=== PATIENT | male | born 1985 | race Caucasian/White ===

== ENCOUNTER 2025-03-05 15:41 | Inpatient (IN) ==
[2025-03-05] MEDS ORDERED: Ativan PO Alcohol Withdrawal--Active Protocol PO PRN (17:27)
[2025-03-05] MEDS ORDERED: LORazepam 1 MG TAB PO PRN ×3 (17:27)
[2025-03-05 17:28] LABS: Appearance Urine Clear (Clear); Glucose Urine UA Negative (Negative)
[2025-03-05 17:32] LABS: Hematocrit (blood only) 43.0 % (42.0-52.0); Hemoglobin 15.6 g/dl (14.0-18.0); Immature Granulocytes # (auto) 0.02 K/uL (0.01-0.20); Immature Granulocytes % (auto) 0.3 %; Mean Corpuscular Hemoglobin 32.9 pg (25.0-34.0); Mean Corpuscular Volume 90.7 fL (80.0-100.0); Platelet Count 185 K/uL (130-400); RDW Standard Deviation 40.3 fL (36.4-46.3); Red Blood Count 4.74 M/uL (4.70-6.10); White Blood Count 6.10 K/ul (4.8-10.8)
[2025-03-05 17:49] LABS: Alanine Aminotransferase 77.0 U/L (7-52); Albumin Globulin Ratio 1.3 (0.9-2); Alkaline Phosphatase 61.0 U/L (34-104); Anion Gap 13.0 (3-11); Bilirubin,Total 1.1 mg/dl (0.2-1.0); Blood Urea Nitrogen 5.0 mg/dl (6-23); Calcium 8.2 mg/dl (8.6-10.3); Carbon Dioxide 23.0 mmol/L (21-32); Chloride 107.0 mmol/L (98-107); Creatinine Clr Calc Pharmacy 183.4 ml/min; Globulin 3.0 gm/dl (2.5-4.0); Glucose 105.0 mg/dl (70-99(Fasting)); Lipase 49.0 U/L (11-82); Potassium 3.2 mmol/L (3.5-5.1); Sodium 143.0 mmol/L (136-145); Total Protein 6.8 gm/dl (6.0-8.3)
[2025-03-05 17:50] LABS: Amphetamines+Metham, Urine Neg (Neg); MDMA (Ecstacy), Urine Neg (Neg); Marijuana, Urine Neg (Neg)
[2025-03-05] MEDS: SODIUM CHLORIDE 0.9% 1,000 ML IV ONE (17:57)
[2025-03-05] MEDS: THIAMINE HCL 100 MG/ML 2 ML VIAL IM ONE (17:59)
[2025-03-05 18:04] LABS: Thyroid Stimulating Hormone 1.657 uIu/ml (0.300-4.500)
[2025-03-05 18:09] LABS: Acetaminophen < 3 ug/ml (10-30); Salicylate < 3.0 mg/dl (3.0-30)
[2025-03-05] MEDS: MULTIVITAMIN TAB PO SCH (18:30)
[2025-03-05] MEDS: FOLIC ACID 1 MG TAB PO SCH (18:30)
[2025-03-05] MEDS: LORazepam 1 MG TAB PO PRN (18:32)
--- NOTE | 2025-03-05 19:08 | History & Physical Report ---
Date of Service March 05, 2025 Assessment & Plan (1) Alcohol abuse with withdrawal: (2) Acute anxiety: (3) Major depression: Plan Leonard Breen is a 39 y/o M with a past medical history of severe depressive disorder and anxiety, who recently attempted to taper off his chronic alcohol consumption in the past 2 weeks, and recently switched anti-depressant medication from Wellbutrin to Zoloft in the past 3 weeks, admitted due to worsening anxiety and depression with concerns for thoughts of HI and acute alcohol withdrawal. Patient denies current HI/SI. Alcohol abuse with withdrawal - 10mg PO diazepam and 4mg of PO Ativan given in ED with improvements in symptoms - AWSS protocol with Ativan started - Patient slightly tremulous and tachycardic, w/o N/V, abdominal pain, diaphoresis, agitation, or hallucinations; continue to monitor - LFTs slightly elevated, Ethyl alcohol elevated on admission: 298 - Folic acid and thiamine supplementation - CBC, CMP QAM Anxiety and depression - Continue home medications: Buspar 5mg TID (Consider increasing), and Zoloft 100mg PO QAM - Hold hydroxyzine as patient reports it has been ineffective - Psychiatry consult placed due to concerns with HI and for psychiatric medicati on management FEN/GI: Regular diet DVT proph: Lovenox 40mg SQ QAM History of Present Illness Chief Complaint: Acute EtOH withdrawal, severe depression/anxiety Primary Care Provider: Manfred Mistry MD Leonard Breen is a 39 y/o M with a past medical hx of major depressive disorder and severe anxiety arriving to [facility] ED with his brother for a mental health evaluation and due to acute alcohol intoxication and concerns for withdrawal. Patient reports that he does not have other significant past medical hx. Patient notes that for the past few years his mental health medications have been changing. Patient was initially on Lexapro, switched to Wellbutrin 150mg for approximately a year and then more recently switched to Zoloft 100mg in the past 3 weeks. Patient has also been on Buspar 5mg TID and hydroxyzine 10mg QID PRN, but reports that this medication does not help with his anxiety, but it does make him very tired. Patient also endorses that he has been heavily drinking, approximately "2 handles of vodka" per week for the past 3-4 months as he felt that his mental health medications were not working properly. Patient reports that 2 weeks ago patient attempted to taper off his regular alcohol consumption and feels that for approximately 3 weeks to a month he has had progressively worsening anxiety and depression. Patient denies HI/SI and has no plans related to HI/SI but does report that he resonates with other people with severe depression and anxiety who do end up hurting themselves. Patient does endorse that he has a medical marijuana card but does not like the way he feels after using this medication, and he feels that when he uses hydroxyzine or medical marijuana he cannot focus on his work. Patient does not report any new stressors, but he does mention that he started a job 5 months ago and mentions t hat the thought of failing at his job often spirals in his mind making it very difficult for him to complete any tasks or be productive. Currently patient remains afebrile and hemodynamically stable. Allergies Allergy/AdvReac Type Severity Reaction Status Date / Time No Known Drug Allergies Allergy Unknown Verified 03/05/25 18:20 Home Medications Medication Instructions Recorded Confirmed Type buspirone 5 mg tablet 5 mg PO TID 03/05/25 03/05/25 History hydroxyzine HCl 10 mg tablet 10 mg PO 4XD PRN Anxiety 03/05/25 03/05/25 History levocetirizine 5 mg PO DAILY PRN Allergy Symptoms 03/05/25 03/05/25 History sertraline 25 mg tablet (Zoloft) 100 mg PO HS 03/05/25 03/05/25 History Past Med/Surg History Problem List Major depression Alcohol abuse with withdrawal (Acute) Acute anxiety (Acute) control counseling Surgical History H/O nasal septoplasty [place] teeth extracted Family History Father Hypertension Diabetes Asthma Grandfather Heart disease Social History Smoking Status: Never smoker Hx Alcohol Use: Yes Hx Substance Use: No Preferred Language: Swiss Communication Ability: Effective 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 Skin: warm, dry, intact HEENT: NC/AT, anicteric sclera, conjunctiva without injection, moist mucus membranes. Heart: +S1/S2, regular, no m/r/g Lungs: equal air entry bilaterally, no rales/rhonchi/wheezes Abd: +BS, soft, NT/ND Ext: warm, no clubbing/cyanosis or edema Neuro: nonfocal, speech intact, no facial droop, moving all extremities Results & Data Results & Data Vital Signs (Past 12 Hours) Vital Signs Temp Pulse Pulse Resp BP BP Pulse Ox 03/05/25 18:21 94 03/05/25 17:18 92 H 20 143/99 H 99 03/05/25 16:11 36.8 C 94 H 24 166/81 H 98 O2 Del Method 03/05/25 18:21 Room Air 03/05/25 17:18 Room Air 03/05/25 16:11 Room Air Laboratory Results Laboratory Results WBC 6.10 K/ul (4.8-10.8) 03/05/25 16:55 RBC 4.74 M/uL (4.70-6.10) 03/05/25 16:55 Hgb 15.6 g/dl (14.0-18.0) 03/05/25 16:55 Hct 43.0 % (42.0-52.0) 03/05/25 16:55 MCV 90.7 fL (80.0-100.0) 03/05/25 16:55 MCH 32.9 pg (25.0-34.0) 03/05/25 16:55 MCHC 36.3 g/dL (32.0-36.0) H 03/05/25 16:55 RDW Std Deviation 40.3 fL (36.4-46.3) 03/05/25 16:55 RDW Coeff of Adriano 12.2 % (11.5-14.5) 03/05/25 16:55 Plt Count 185 K/uL (130-400) 03/05/25 16:55 MPV 8.2 fL (9.4-12.4) L 03/05/25 16:55 Immature Gran % (Auto) 0.3 % 03/05/25 16:55 Neut % (Auto) 62.6 % 03/05/25 16:55 Lymph % (Auto) 25.2 % 03/05/25 16:55 [place] % (Auto) 9.5 % 03/05/25 16:55 Eos % (Auto) 1.1 % 03/05/25 16:55 Baso % (Auto) 1.3 % 03/05/25 16:55 Neut # (Auto) 3.81 K/uL (1.40-6.50) 03/05/25 16:55 Lymph # (Auto) 1.54 K/uL (1.20-3.40) 03/05/25 16:55 [place] # (Auto) 0.58 K/uL (0.11-0.59) 03/05/25 16:55 Eos # (Auto) 0.07 K/uL (0.00-0.50) 03/05/25 16:55 Baso # (Auto) 0.08 K/uL (0.00-0.20) 03/05/25 16:55 Immature Gran # (Auto) 0.02 K/uL (0.01-0.20) 03/05/25 16:55 Sodium 143 mmol/L (136-145) 03/05/25 16:55 Potassium 3.2 mmol/L (3.5-5.1) L 03/05/25 16:55 Chloride 107 mmol/L (98-107) 03/05/25 16:55 Carbon Dioxide 23 mmol/L (21-32) 03/05/25 16:55 Anion Gap 13 (3-11) H 03/05/25 16:55 BUN 5 mg/dl (6-23) L 03/05/25 16:55 Creatinine 0.55 mg/dl (0.6-1.4) L 03/05/25 16:55 Est Cr Clr Drug Dosing 183.4 ml/min 03/05/25 16:55 eGFR 130.09 03/05/25 16:55 BUN/Creatinine Ratio 9.1 (10-20) L 03/05/25 16:55 Glucose 105 mg/dl (70-99(Fasting)) H 03/05/25 16:55 Calcium 8.2 mg/dl (8.6-10.3) L 03/05/25 16:55 Total Bilirubin 1.1 mg/dl (0.2-1.0) H 03/05/25 16:55 AST 105 U/L (13-39) H 03/05/25 16:55 ALT 77 U/L (7-52) H 03/05/25 16:55 Alkaline Phosphatase 61 U/L (34-104) 03/05/25 16:55 Total Protein 6.8 gm/dl (6.0-8.3) 03/05/25 16:55 Albumin 3.8 gm/dl (3.4-5.0) 03/05/25 16:55 Globulin 3.0 gm/dl (2.5-4.0) 03/05/25 16:55 Albumin/Globulin Ratio 1.3 (0.9-2) 03/05/25 16:55 Lipase 49 U/L (11-82) 03/05/25 16:55 TSH 1.657 uIu/ml (0.300-4.500) 03/05/25 16:55 Urine Color Yellow 03/05/25 16:24 Urine Appearance Clear (Clear) 03/05/25 16:24 Urine pH 7.5 (4.5-7.5) 03/05/25 16:24 Ur Specific [place] 1.003 (1.000-1.030) 03/05/25 16:24 Urine Protein Negative (Negative) 03/05/25 16:24 Urine Glucose (UA) Negative (Negative) 03/05/25 16:24 Urine Ketones Negative (Negative) 03/05/25 16:24 Urine Blood Negative (Negative) 03/05/25 16:24 Urine Nitrite Negative (Negative) 03/05/25 16:24 Urine Bilirubin Negative (Negative) 03/05/25 16:24 Urine Urobilinogen Negative (Negative) 03/05/25 16:24 Ur Leukocyte Esterase Trace (Negative) H 03/05/25 16:24 Urine Comment 03/05/25 16:24 Salicylates < 3.0 mg/dl (3.0-30) L 03/05/25 16:55 Urine Opiates Screen Neg (Neg) 03/05/25 16:24 Ur Methadone, Qual Neg (Neg) 03/05/25 16:24 Urine Fentanyl Screen Neg (Neg) 03/05/25 16:24 Acetaminophen < 3 ug/ml (10-30) L 03/05/25 16:55 Urine Barbiturates Neg (Neg) 03/05/25 16:24 Ur Phencyclidine (PCP) Neg (Neg) 03/05/25 16:24 U Amphetamin/Meth Scrn Neg (Neg) 03/05/25 16:24 MDMA (Ecstasy) Screen Neg (Neg) 03/05/25 16:24 U Benzodiazepines Scrn Neg (Neg) 03/05/25 16:24 Ur Cocaine Metabolite Neg (Neg) 03/05/25 16:24 U Marijuana (THC) Screen Neg (Neg) 03/05/25 16:24 Ethyl Alcohol mg/dL 289.7 mg/dl (<10.0) H 03/05/25 16:55 SARS-CoV-2, RNA, NAAT NEGATIVE (NEGATIVE) 03/05/25 16:55 Supervising Physician Co-Signing Physician Notes Patient seen and examined, chart reviewed, case discussed with Dr. Riggins and I agree with the assessment and plan as above. In brief, patient is a 39yo male with history of anxiety/depression presenting with worsening anxiety symptoms and EtOH withdrawal. Patient reports he drinks 2 handles of vodka/week (roughly 11-12 drinks/day) with his last drink being today around 15:00. Patient states that his anxiety is overall poorly controlled and he drinks to help manage ongoing anxiety. No history of complicated withdrawals, seizures, DTs or rehab. He did try to taper off his alcohol earlier this week but had some mild withdrawal symptoms. Recently had a change from Wellbutrin to Sertraline. On exam patient is resting comfortably in room A5 Skin - no rash HEENT - MMM, neck supple Heart - +S1/S2, regular, no m/r/g, tachycardic Lungs - CTA anteriorly, no rales/rhonchi/wheezes Abd - +BS, soft, NT/ND Ext -no edema Labs and images reviewed Assessment/plan -Admit to PCU -Administer Valium 10mg PO now -Ativan per AWSS protocol -Thiamine and Folic acid daily -Psychiatry consultation appreciated re: management of medications, ?escalation of Sertraline -Remainder as above Resident Activity Tracking Resident Involvement: Resident Care Provided Care Provided: Adult Hospital Medicine
--- NOTE | 2025-03-05 19:17 | Emergency Department Note ---
History of Present Illness General Chief complaint: Anxiety Stated complaint: PANIC Time Seen by Provider: 03/05/25 16:40 History of Present Illness Provider complaint: Mental health evaluation 31-year-old male presents emergency department for mental health evaluation. Patient states he has been having increasing panic attacks and anxiety leading him to be unable to work. Patient states his anxiety is so bad that he wants to kill himself. He states he has been having thoughts of wanting to kill himself. Patient states he has been trying to drink excessively to calm himself down. Patient states he drank half a bottle of vodka prior to arrival. Home Medications Medication Instructions Recorded Confirmed Type buspirone 5 mg tablet 5 mg PO TID 03/05/25 03/05/25 History hydroxyzine HCl 10 mg tablet 10 mg PO 4XD PRN Anxiety 03/05/25 03/05/25 History levocetirizine 5 mg PO DAILY PRN Allergy Symptoms 03/05/25 03/05/25 History sertraline 25 mg tablet (Zoloft) 100 mg PO HS 03/05/25 03/05/25 History Allergies Allergy/AdvReac Type Severity Reaction Status Date / Time No Known Drug Allergies Allergy Unknown Verified 03/05/25 18:20 Past Med/Surg History Problem List (Updated 03/05/25 @ 19:17 by Tang Escalante MD) Alcohol abuse with withdrawal (Acute) Acute anxiety (Acute) control counseling Surgical History (Updated 04/24/19 @ 08:59 by Manfred Grant) H/O nasal septoplasty [place] teeth extracted Family History (Updated 07/26/19 @ 16:53 by Manfred Grant) Father Hypertension Diabetes Asthma Grandfather Heart disease Social History (Updated 04/24/19 @ 09:01 by Manfred Grant) Smoking Status: Never smoker Hx Alcohol Use: Yes Preferred Language: Slovak marital status: Feels Safe at Home: Yes Physical Exam Vital Signs Vital Signs - 24 hr 03/05/25 16:11 03/05/25 17:18 03/05/25 18:21 Temperature 36.8 C Temperature Source Temporal Artery Scan Pulse Rate 94 H Pulse Rate [Apical] 92 H Respiratory Rate 24 20 Respiratory Effort / Characteristics Non-Labored Respiratory Depth Normal Normal Blood Pressure 166/81 H Blood Pressure [Right Arm] 143/99 H Blood Pressure Mean 109 Blood Pressure Mean [Right Arm] 113 Pulse Oximetry 98 99 94 Oxygen Delivery Method Room Air Room Air Room Air Sepsis Recent Fever Within 48 Hours No Sepsis New/Unexplained Change in Mental Status No Sepsis Action Taken by Nursing No Action Required Physical Exam GENERAL: Patient is tremulous and anxious HENT: Exam performed. - Head: Normocephalic and atraumatic. EYES: Conjunctivae and EOM are normal. Right eye exhibits no discharge. Left eye exhibits no discharge. No scleral icterus. NECK: Normal range of motion. Neck supple. No JVD present. CV: Tachycardic rate, regular rhythm, normal heart sounds and intact distal pulses. There is no peripheral edema. Palpable radial pulses bue. PULM/CHEST: Effort normal and breath sounds normal. No respiratory distress. No stridor. no wheezes. no rales. ABD: The abdomen is soft. There is no tenderness. NEURO: Motor and sensation grossly intact. PSYCH: Anxious. Course Course 1640: The patient was evaluated in room A5. A complete history and physical exam was performed Cardiac monitoring: An order was placed for continuous cardiac monitoring. The monitor shows a rate of 110 with sinus tachycardia rhythm interpreted by me 1916: Vital signs stable. Patient treated with Ativan for alcohol withdrawal symptoms given his tremulousness and tachycardia. Patient will be admitted for psychiatric evaluation and alcohol withdrawal. Administered Medications Folic Acid (Folic Acid 1 Mg Tab) 1 mg PO QAM JINNY Stop: 04/04/25 17:29 Last Admin: 03/05/25 18:30 Dose: 1 mg Documented By: KHAI Multivitamins (Multivitamin Tab) 1 tab PO QAM JINNY Stop: 04/04/25 17:29 Last Admin: 03/05/25 18:30 Dose: 1 tab Documented By: KHAI Discontinued Medications Sodium Chloride (Nss) 1,000 mls @ 999 mls/hr IV .Q1H1M ONE Stop: 03/05/25 18:27 Last Infusion: 03/05/25 19:07 Dose: Infused Documented By: Admin: 03/05/25 17:57 Dose: 999 mls/hr Documented By: KHAI Lorazepam (Lorazepam 2 Mg/1 Ml Vial) 1 mg IV ONE PRN; Protocol PRN Reason: EtoH Withdrawal AWSS 6-10 Last Admin: 03/05/25 17:58 Dose: 1 mg Documented By: KHAI Lorazepam (Lorazepam 1 Mg Tab) 3 mg PO ONCE PRN; Protocol PRN Reason: EtOH Withdrawal AWSS Score 10 & above Last Admin: 03/05/25 18:32 Dose: 3 mg Documented By: KHAI Thiamine HCl (Thiamine Hcl 100 Mg/Ml 2 Ml Vial) 100 mg IM NOW ONE Stop: 03/05/25 17:28 Last Admin: 03/05/25 17:59 Dose: 100 mg Documented By: KHAI Medical Decision Making Laboratory Data Attestation: I reviewed the patient's lab results. 03/05/25 16:55 03/05/25 16:55 Lab Results 03/05/25 03/05/25 Range/Units 16:24 16:55 WBC 6.10 (4.8-10.8) K/ul RBC 4.74 (4.70-6.10) M/uL Hgb 15.6 (14.0-18.0) g/dl Hct 43.0 (42.0-52.0) % MCV 90.7 (80.0-100.0) fL MCH 32.9 (25.0-34.0) pg MCHC 36.3 H (32.0-36.0) g/dL RDW Std Deviation 40.3 (36.4-46.3) fL RDW Coeff of Adriano 12.2 (11.5-14.5) % Plt Count 185 (130-400) K/uL MPV 8.2 L (9.4-12.4) fL Immature Gran % (Auto) 0.3 % Neut % (Auto) 62.6 % Lymph % (Auto) 25.2 % [place] % (Auto) 9.5 % Eos % (Auto) 1.1 % Baso % (Auto) 1.3 % Neut # (Auto) 3.81 (1.40-6.50) K/uL Lymph # (Auto) 1.54 (1.20-3.40) K/uL [place] # (Auto) 0.58 (0.11-0.59) K/uL Eos # (Auto) 0.07 (0.00-0.50) K/uL Baso # (Auto) 0.08 (0.00-0.20) K/uL Immature Gran # (Auto) 0.02 (0.01-0.20) K/uL Sodium 143 (136-145) mmol/L Potassium 3.2 L (3.5-5.1) mmol/L Chloride 107 (98-107) mmol/L Carbon Dioxide 23 (21-32) mmol/L Anion Gap 13 H (3-11) BUN 5 L (6-23) mg/dl Creatinine 0.55 L (0.6-1.4) mg/dl Est Cr Clr Drug Dosing 183.4 ml/min eGFR 130.09 BUN/Creatinine Ratio 9.1 L (10-20) Glucose 105 H (70-99(Fasting)) mg/dl Calcium 8.2 L (8.6-10.3) mg/dl Total Bilirubin 1.1 H (0.2-1.0) mg/dl AST 105 H (13-39) U/L ALT 77 H (7-52) U/L Alkaline Phosphatase 61 (34-104) U/L Total Protein 6.8 (6.0-8.3) gm/dl Albumin 3.8 (3.4-5.0) gm/dl Globulin 3.0 (2.5-4.0) gm/dl Albumin/Globulin Ratio 1.3 (0.9-2) Lipase 49 (11-82) U/L TSH 1.657 (0.300-4.500) uIu/ml Urine Color Yellow Urine Appearance Clear (Clear) Urine pH 7.5 (4.5-7.5) Ur Specific [place] 1.003 (1.000-1.030) Urine Protein Negative (Negative) Urine Glucose (UA) Negative (Negative) Urine Ketones Negative (Negative) Urine Blood Negative (Negative) Urine Nitrite Negative (Negative) Urine Bilirubin Negative (Negative) Urine Urobilinogen Negative (Negative) Ur Leukocyte Esterase Trace H (Negative) Urine Comment Salicylates < 3.0 L (3.0-30) mg/dl Urine Opiates Screen Neg (Neg) Ur Methadone, Qual Neg (Neg) Urine Fentanyl Screen Neg (Neg) Acetaminophen < 3 L (10-30) ug/ml Urine Barbiturates Neg (Neg) Ur Phencyclidine (PCP) Neg (Neg) U Amphetamin/Meth Scrn Neg (Neg) MDMA (Ecstasy) Screen Neg (Neg) U Benzodiazepines Scrn Neg (Neg) Ur Cocaine Metabolite Neg (Neg) U Marijuana (THC) Screen Neg (Neg) Ethyl Alcohol mg/dL 289.7 H (<10.0) mg/dl SARS-CoV-2, RNA, NAAT NEGATIVE (NEGATIVE) MDM Narrative 1640: The patient was evaluated in room A5. A complete history and physical exam was performed Cardiac monitoring: An order was placed for continuous cardiac monitoring. The monitor shows a rate of 110 with sinus tachycardia rhythm interpreted by me 1916: Vital signs stable. Patient treated with Ativan for alcohol withdrawal symptoms given his tremulousness and tachycardia. Patient will be admitted for psychiatric evaluation and alcohol withdrawal. Impression & Plan Acute anxiety, Alcohol abuse with withdrawal Discharge Plan Visit Data Chief Complaint: Anxiety Stated Complaint: PANIC ED Provider: Tang Escalante Discharge Problem: Acute anxiety, Alcohol abuse with withdrawal Patient Disposition: Being Evaluated by Hospitalist Condition: Fair Forms Stand Alone Forms: [facility], Suicide Prevention Resources Prescriptions Prescriptions: No Action buspirone [BuSpar] 5 mg Tablet 5 mg PO TID sertraline [Zoloft] 25 mg tablet 100 mg PO HS hydroxyzine HCl 10 mg tablet 10 mg PO 4XD PRN (Reason: Anxiety) levocetirizine 5 mg tablet 5 mg PO DAILY PRN (Reason: Allergy Symptoms) Referrals Referrals: Manfred Mistry MD [Primary Care Provider] -
[2025-03-05] MEDS ORDERED: POLYETHYLENE (MIRALAX) 17 GM PACK PO PRN (21:41)
[2025-03-05] MEDS ORDERED: Ativan IV Alcohol Withdrawal--Active Protocol IV PRN ×2 (21:41)
[2025-03-05] MEDS ORDERED: ACETAMINOPHEN 325 MG TAB PO PRN (21:41)
[2025-03-05] MEDS ORDERED: MELATONIN 3 MG TAB PO PRN (21:41)
[2025-03-05] MEDS: busPIRone 5 MG TAB PO SCH (22:06)
[2025-03-05] MEDS: SERTRALINE HCL 100 MG TABLET PO SCH (22:06)
[2025-03-05] MEDS: ENOXAPARIN INJ 40 MG/0.4 ML SYR SQ SCH (22:30)
--- NOTE | 2025-03-05 22:34 | Billing Data ---
Date of Service March 05, 2025 Coding Level of Care Code 70700 INT INP/OBS CARE
[2025-03-06] MEDS: POTASSIUM CHLORIDE CRTAB 20 MEQ TABCR PO STA (07:43)
[2025-03-06 07:53] LABS: Hematocrit (blood only) 40.8 % (42.0-52.0); Hemoglobin 15.0 g/dl (14.0-18.0); Immature Granulocytes # (auto) 0.02 K/uL (0.01-0.20); Immature Granulocytes % (auto) 0.3 %; Mean Corpuscular Hemoglobin 34.2 pg (25.0-34.0); Mean Corpuscular Volume 93.2 fL (80.0-100.0); Platelet Count 163 K/uL (130-400); RDW Standard Deviation 41.3 fL (36.4-46.3); Red Blood Count 4.38 M/uL (4.70-6.10); White Blood Count 7.11 K/ul (4.8-10.8)
[2025-03-06 08:17] LABS: Alanine Aminotransferase 69.0 U/L (7-52); Albumin Globulin Ratio 1.6 (0.9-2); Alkaline Phosphatase 58.0 U/L (34-104); Anion Gap 9.0 (3-11); Bilirubin,Total 1.8 mg/dl (0.2-1.0); Blood Urea Nitrogen 6.0 mg/dl (6-23); Calcium 7.9 mg/dl (8.6-10.3); Carbon Dioxide 26.0 mmol/L (21-32); Chloride 105.0 mmol/L (98-107); Creatinine Clr Calc Pharmacy 173.9 ml/min; Globulin 2.4 gm/dl (2.5-4.0); Glucose 97.0 mg/dl (70-99(Fasting)); Magnesium 1.4 mg/dl (1.7-2.4); Potassium 3.6 mmol/L (3.5-5.1); Sodium 140.0 mmol/L (136-145); Total Protein 6.2 gm/dl (6.0-8.3)
[2025-03-06 08:37] LABS: Folate (Folic Acid),Ser orPlas 9.03 ng/ml (>5.38); Vitamin B12 252.0 pg/ml (180-914)
[2025-03-06] MEDS: THIAMINE HCL 100 MG TAB PO SCH (09:33)
[2025-03-06] MEDS: CYANOCOBALAMIN 1000 MCG/ML VIAL IM ONE (10:28)
--- NOTE | 2025-03-06 11:35 | Hospitalist Progress Note ---
Date of Service March 06, 2025 Assessment & Plan (1) Alcohol abuse with withdrawal: (2) Acute anxiety: (3) Major depression: Plan Leonard Breen is a 39 y/o M with a PMH of severe depressive disorder and anxiety, insomnia. he was on buspirone, hydroxyzine, lexapro in the past, and did not address his anxiety. who recently attempted to taper off his chronic alcohol consumption in the past 2 weeks, and recently switched anti-depressant medication from Wellbutrin to Zoloft in the past 3 weeks, admitted due to worsening anxiety and depression with concerns for thoughts of HI and acute alcohol withdrawal. Patient denies current HI/SI. Alcohol abuse with withdrawal need admission to PCU need one to one sitter - 10mg PO diazepam and 4mg of PO Ativan given in ED with improvements in symptoms adding gabapentin on interview on 03/06, still has tremor, diaphoresis - AWSS protocol with Ativan started - Patient slightly tremulous and tachycardic, w/o N/V, abdominal pain, diaphoresis, agitation, or hallucinations; continue to monitor - LFTs slightly elevated, Ethyl alcohol elevated on admission: 298 - Folic acid and thiamine - CBC, CMP QAM transaminitis continue to monitor, AST elevated at 119, ALT of 69 total bilirubin elevated Anxiety and depression - Continue home medications: Buspar 5mg TID (Consider increasing), and Zoloft 100mg PO QAM adding gabapentin 100mg tID - Hold hydroxyzine as patient reports it has been ineffective - Psychiatry consult placed due to concerns with HI and for psychiatric medication management insomnia, melatonin 6mg qHS b12 deficiency; IM b12 1000 daily FEN/GI: Regular diet DVT proph: Lovenox 40mg SQ QAM Admission and Anticipated Discharge Date Admission Date: March 05, 2025 Subjective he's need one to one until psych cleared him he has significant diaphoresis, tremor and being treated for alcohol withdrawal he finished one bottle of liquid in 2-3 days in addition, long standing anxiety did not responded to hydroxyzine, buspirone, lexapro recently started on zoloft but has poor response AAox3 denied stressor at work or at home Review of Systems Review of Systems: Constitutional: No Weight Change, No Fever, No Chills, No Night Sweats, No Fatigue, No Malaise Cardiovascular: No Chest Pain, No SOB, No PND, No Dyspnea on Exertion, No Orthopnea, No Claudication, No Edema, No Palpitations Respiratory: No Cough, No Sputum, No Wheezing, No Smoke Exposure, No Dyspnea Gastrointestinal: No Nausea, No Vomiting, No Diarrhea, No Constipation, No Pain, No Heartburn, No Anorexia, No Dysphagia, No Hematochezia, No Melena, No Flatulence, No Jaundice Musculoskeletal: No Arthralgias, No Myalgias, No Joint Swelling, No Joint Stiffness, No Back Pain, No Neck Pain, No Injury History Neuro: no headache psych: + for anxiety; + for depression; + for insomnia ; no hallucination; denied stressor at work Heme/Lymph: No Bruising, No Bleeding, No Transfusions History, No Lymphadenopathy Physical Exam Physical Exam: VITALS: Reviewed. WEIGHT/BMI reviewed. GEN: Healthy appearing, well-developed, NAD. PSYCH: ; anxious; no sign of psychosis of hallucination Neuro: AAox3; + for tremor; + for diaphoresis HEENT -Head: NC/AT; \ NECK: Supple, with no masses. CV: RRR, no m/r/g. LUNGS: CTAB, no w/r/c. ABD: Soft, NT/ND, NBS, no masses or organomegaly. : N/A SKIN: Warm, well perfused. No skin rashes or abnormal lesions. MSK: No deformities, Normal gait. EXT: No clubbing, cyanosis, or edema. Results & Data Results & Data Vital Signs (Past 12 Hours) Vital Signs Temp Pulse Pulse Resp BP BP Pulse Ox 03/06/25 08:30 138/89 03/06/25 08:24 81 24 96 03/06/25 08:00 80 21 139/95 97 03/06/25 07:48 101 H 22 98 03/06/25 07:30 139/96 03/06/25 07:21 83 22 96 03/06/25 07:00 137/88 03/06/25 04:28 36.9 C 88 18 143/88 H 96 03/06/25 02:00 36.9 C 103 H 18 136/89 100 03/06/25 00:30 89 18 138/94 100 O2 Del Method 03/06/25 08:30 03/06/25 08:24 Room Air 03/06/25 08:00 Room Air 03/06/25 07:48 Room Air 03/06/25 07:30 03/06/25 07:21 Room Air 03/06/25 07:00 03/06/25 04:28 Room Air 03/06/25 02:00 Room Air 03/06/25 00:30 Room Air Laboratory Results Laboratory Results - last 72 hr 03/05/25 03/05/25 03/06/25 16:24 16:55 07:30 WBC 6.10 7.11 RBC 4.74 4.38 L Hgb 15.6 15.0 Hct 43.0 40.8 L MCV 90.7 93.2 MCH 32.9 34.2 H MCHC 36.3 H 36.8 H RDW Std Deviation 40.3 41.3 RDW Coeff of Adriano 12.2 12.1 Plt Count 185 163 MPV 8.2 L 8.2 L Immature Gran % (Auto) 0.3 0.3 Neut % (Auto) 62.6 61.8 Lymph % (Auto) 25.2 24.3 [place] % (Auto) 9.5 9.7 Eos % (Auto) 1.1 2.5 Baso % (Auto) 1.3 1.4 Neut # (Auto) 3.81 4.39 Lymph # (Auto) 1.54 1.73 [place] # (Auto) 0.58 0.69 H Eos # (Auto) 0.07 0.18 Baso # (Auto) 0.08 0.10 Immature Gran # (Auto) 0.02 0.02 Sodium 143 140 Potassium 3.2 L 3.6 Chloride 107 105 Carbon Dioxide 23 26 Anion Gap 13 H 9 BUN 5 L 6 Creatinine 0.55 L 0.58 L Est Cr Clr Drug Dosing 183.4 173.9 eGFR 130.09 128.02 BUN/Creatinine Ratio 9.1 L 10.3 Glucose 105 H 97 Calcium 8.2 L 7.9 L Magnesium 1.4 L Total Bilirubin 1.1 H 1.8 H D AST 105 H 119 H ALT 77 H 69 H Alkaline Phosphatase 61 58 Total Protein 6.8 6.2 Albumin 3.8 3.8 Globulin 3.0 2.4 L Albumin/Globulin Ratio 1.3 1.6 Lipase 49 Vitamin B12 252 Folate 9.03 TSH 1.657 Urine Color Yellow Urine Appearance Clear Urine pH 7.5 Ur Specific [place] 1.003 Urine Protein Negative Urine Glucose (UA) Negative Urine Ketones Negative Urine Blood Negative Urine Nitrite Negative Urine Bilirubin Negative Urine Urobilinogen Negative Ur Leukocyte Esterase Trace H Urine Comment Salicylates < 3.0 L Urine Opiates Screen Neg Ur Methadone, Qual Neg Urine Fentanyl Screen Neg Acetaminophen < 3 L Urine Barbiturates Neg Ur Phencyclidine (PCP) Neg U Amphetamin/Meth Scrn Neg MDMA (Ecstasy) Screen Neg U Benzodiazepines Scrn Neg Ur Cocaine Metabolite Neg U Marijuana (THC) Screen Neg Ethyl Alcohol mg/dL 289.7 H SARS-CoV-2, RNA, NAAT NEGATIVE PG Care Time/CCT Total # of Minutes Spent Total Time Spent with Patient: Total time spent is greater than 50% in coordination of care (as documented) at patient's floor/unit and/or counseling patient: Coding Level of Care Code 45927 SUB INP/OBS CARE 07/15MIN Diagnoses Alcohol abuse with withdrawal F10.139 Acute anxiety F41.9 Major depression F32.9 Time Spent (min) 25
[2025-03-06] MEDS: GABAPENTIN 100 MG CAP PO SCH (12:23)
--- NOTE | 2025-03-06 14:15 | Psychiatric Consultation ---
Date of Consultation March 06, 2025 Impression / Recommendations Impression Diagnostically consistent with alcohol use disorder as well as unspecified depression and anxiety likely a combination of substance-induced mood changes as well as BRADLEY. Acute risk of self-harm is low given denial of SI and no longer with intoxication. Acute risk of harm to others is low given denial of HI. Chronic risk of self-harm and harm to others is slightly increased due to substance use with substance use treatment being the most significant modifiable risk factor to reduce acute and chronic risk. They are not interested in residential treatment at this time but are agreeable to outpatient services to help with substance use and medication assisted treatment. Provided psychoeducation about need to treat both depression and anxiety as well as alcohol at the same time to provide significant symptom relief. Provided education about depressant effects of alcohol and increased anxiety with withdrawal symptoms. Encouraged consideration of residential alcohol use program and AA. Overall, I spent a total of 80 minutes with this case including review of chart records, review of labwork, direct evaluation of the patient at bedside, counseling the patient, discussion of the patient with the Nurse and with the hospitalist provider, discussion with the psychiatric liason during clinical rounds and documentation in the electronic health record. (1) Alcohol use disorder, severe, dependence: (2) BRADLEY (generalized anxiety disorder): (3) Depression: Plan -Psychiatric liason will provide resources on local mental health services and substance use services and attempt to set them up with outpatient services -Patient is not an imminent danger to self or others and does not meet criteria for involuntary psychiatric commitment -Continue AWSS as well as thiamine and folic acid -Consider loading dose of gabapentin with taper per AWSS order set -Further medication recommendations: * Continue sertraline 100mg daily * Continue buspar 5mg TID * Start additional gabapentin 300mg TID prn for anxiety/panic attacks as harm reduction strategy * Star propranolol 10mg TID for off-label use for anxiety if cardiac status is stable * Start naltrexone 50mg daily once AST lessens to <2x normal limit -In the future if symptoms persist would consider: * Increasing sertraline to 150mg and then max dose of 200mg * If sertraline remains ineffective consider trial of SNRI like venlafaxine ER -If he agrees to MICHELL get further collateral from or other support and confirm that guns are removed from the home Psych History Identifying Data Leonard Breen is a 39 y/o man with a past medical history of depressive disorder and anxiety and alcohol use disorder presenting with acute alcohol withdrawal and SI. Psychiatry consulted for risk assessment and recommendations. Chief Complaint "I tend to be very all or nothing". History of Present Illness Leonard came to the hospital due to escalating alcohol use. Reports heavy use over the past 5 years with problematic use over the last 2 years. Longest period of sobriety in the last 2 years was for 3 days. Recently had been trying to reduce his alcohol use but developed significant increase in anxiety and has been co nsuming 1 bottle of vodka every 2 days. Drinks throughout the day with vodka mixed with seltzer. Has still been tryng to work and denies any negative impacts on his family. However, he doesn't like that the alcohol only offers "a short lived plateau" in managing his anxiety and that there is no "off-ramp". He likes that alcohol provides "an escape" and a way to "knock down my nerves". He's been dealing with depression and severe anxiety. he identifies the anxiety as most problematic and what leads him to drink alcohol to avoid feeling physically restless. Hard to determine if some of his physical anxiety is from alcohol withdrawal when he tries to lessen his use. He denies any thoughts of suicide. He's future-oriented about his family and job. 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 Denies any HI and no history of violence. Today he is fully oriented but very tremulous. He's been receiving ativan due to scoring on AWSS and experienced some visual hallucinations mid-day which improved after second dose of ativan. Psychiatric history notable for: no current outpatient providers, no history of prior suicide attempts, no prior inpt hospitalizations, no fam hx of by suicide. He does have two guns in the home in a gun safe, he's willing to ask his [id number] to remove this and secure them away from the home. Psych medication trial in the past of lexapro with limited initial benefit, Wellbutrin for 1-2 months without benefit and increased anxiety, Vistaril with limited benefit and now taking sertraline and buspar. He's on sertraline 100mg daily which started about 2-3 weeks ago. Allergies Allergy/AdvReac Type Severity Reaction Status Date / Time No Known Drug Allergies Allergy Unknown Verified 03/05/25 18:20 Home Medications Medication Instructions Recorded Confirmed Type buspirone 5 mg tablet 5 mg PO TID 03/05/25 03/05/25 History hydroxyzine HCl 10 mg tablet 10 mg PO 4XD PRN Anxiety 03/05/25 03/05/25 History levocetirizine 5 mg PO DAILY PRN Allergy Symptoms 03/05/25 03/05/25 History sertraline 25 mg tablet (Zoloft) 100 mg PO HS 03/05/25 03/05/25 History Patient History Surgical History H/O nasal septoplasty [place] teeth extracted Family History Father Hypertension Diabetes Asthma Grandfather Heart disease Social History Smoking Status: Never smoker Hx Alcohol Use: Yes Hx Substance Use: No Preferred Language: Croatian Communication Ability: Effective Adult Parole Officer Required: No Beliefs That Will Affect Care: None marital status: Current Living Situation: Spouse Feels Safe at Home: Yes Physical Exam Psychiatric: Orientation: alert and oriented x 3 Apperance: appropriately dressed and appropriately groomed Eye Contact: good eye contact Motor Behavior: + tremor Speech: normal rate/rhythm/volume of speech Affect: + anxious affect Mood: + depressed mood and + anxious mood Thought Process: linear/logical thought process Thought Content: reality based without delusions Suicidal Thoughts: denies suicidal thoughts Homicidal Thoughts: denies homicidal thoughts Hallucinations: no auditory hallucinations and no visual hallucinations Cognition: recent memory grossly intact, remote memory grossly intact, attention grossly intact and language grossly intact Estimated Intelligence: consistent with education level Insight: + fair insight Judgment: + limited judgement Vital Signs (Past 24 Hours): Last Vital Signs Temp 36.6 C 03/06/25 13:58 Pulse 74 03/06/25 13:58 Resp 18 03/06/25 13:58 BP 135/85 03/06/25 13:58 Pulse Ox 97 03/06/25 13:58 O2 Del Method Room Air 03/06/25 13:58 Results & Data (PSY) Medications Administered Buspirone HCl (Buspirone 5 Mg Tab) 5 mg PO TID [facility] Stop: 04/04/25 20:59 Last Admin: 03/06/25 13:42 Dose: 5 mg Documented By: Admin: 03/06/25 09:33 Dose: 5 mg Documented By: Admin: 03/05/25 22:06 Dose: 5 mg Documented By: LEONIE Enoxaparin Sodium (Enoxaparin Inj 40 Mg/0.4 Ml Syr) 40 mg SQ HS [facility] Stop: 04/04/25 21:59 Last Admin: 03/05/25 22:30 Dose: Not Given Documented By: LEONIE Folic Acid (Folic Acid 1 Mg Tab) [facility] Stop: 04/04/25 17:29 Last Admin: 03/06/25 09:34 Dose: 1 mg Documented By: Admin: 03/05/25 18:30 Dose: 1 mg Documented By: KHAI Gabapentin (Gabapentin 100 Mg Cap) 100 mg PO BID [facility] Stop: 04/05/25 11:44 Last Admin: 03/06/25 12:23 Dose: 100 mg Documented By: ABDIRIZAK Lorazepam (Lorazepam 2 Mg/1 Ml Vial) 1 mg IV UD PRN; Protocol PRN Reason: EtOH Withdrawal AWSS Score 6,7 Stop: 04/04/25 21:40 Last Admin: 03/06/25 11:46 Dose: 1 mg Documented By: Admin: 03/06/25 09:44 Dose: 1 mg Documented By: Admin: 03/06/25 02:38 Dose: 1 mg Documented By: Admin: 03/05/25 23:44 Dose: 1 mg Documented By: ARNALDO Lorazepam (Lorazepam 2 Mg/1 Ml Vial) 2 mg IV UD PRN; Protocol PRN Reason: EtOH Withdrawal AWSS Score 8,9 Stop: 04/04/25 21:40 Last Admin: 03/06/25 12:40 Dose: 2 mg Documented By: Admin: 03/06/25 07:43 Dose: 2 mg Documented By: MICHAEL Multivitamins ([facility]ivitamin Tab) [facility] Stop: 04/04/25 17:29 Last Admin: 03/06/25 09:33 Dose: 1 tab Documented By: Admin: 03/05/25 18:30 Dose: 1 tab Documented By: FG Sertraline HCl (Sertraline Hcl 100 Mg Tablet) 100 mg PO HS JINNY Stop: 04/04/25 20:59 Last Admin: 03/05/25 22:06 Dose: 100 mg Documented By: LEONIE Thiamine HCl (Thiamine Hcl 100 Mg Tab) 100 mg PO QAM JINNY Stop: 04/05/25 08:59 Last Admin: 03/06/25 09:33 Dose: 100 mg Documented By: MICHAEL Coding Level of Care Code 20808 IN/OBS CONSULT LVL 5,80M Diagnoses Alcohol use disorder, severe, dependence F10.20 BRADLEY (generalized anxiety disorder) F41.1 Depression F32.A
[2025-03-06] MEDS: GABAPENTIN 300 MG CAP PO SCH (17:30)
[2025-03-06] MEDS: ONDANSETRON INJ 2 MG/ML 2 ML VIAL IV PRN (20:31)
[2025-03-06] MEDS: MELATONIN 3 MG TAB PO SCH (20:33)
[2025-03-07 07:07] LABS: Alanine Aminotransferase 59.0 U/L (7-52); Albumin Globulin Ratio 1.5 (0.9-2); Alkaline Phosphatase 63.0 U/L (34-104); Anion Gap 8.0 (3-11); Bilirubin,Total 2.1 mg/dl (0.2-1.0); Blood Urea Nitrogen 6.0 mg/dl (6-23); Calcium 8.2 mg/dl (8.6-10.3); Carbon Dioxide 25.0 mmol/L (21-32); Chloride 105.0 mmol/L (98-107); Creatinine Clr Calc Pharmacy 171.0 ml/min; Globulin 2.5 gm/dl (2.5-4.0); Glucose 98.0 mg/dl (70-99(Fasting)); Magnesium 1.5 mg/dl (1.7-2.4); Potassium 3.4 mmol/L (3.5-5.1); Sodium 138.0 mmol/L (136-145); Total Protein 6.3 gm/dl (6.0-8.3)
[2025-03-07] MEDS: CYANOCOBALAMIN 1000 MCG/ML VIAL IM SCH (07:49)
--- NOTE | 2025-03-07 08:55 | Hospitalist Progress Note ---
Date of Service March 07, 2025 Assessment & Plan (1) Alcohol abuse with withdrawal: (2) Acute anxiety: (3) Major depression: Plan Leonard Breen is a 39 y/o M with a PMH of severe depressive disorder and anxiety, insomnia. he was on buspirone, hydroxyzine, lexapro in the past, and did not address his anxiety. who recently attempted to taper off his chronic alcohol consumption in the past 2 weeks, and recently switched anti-depressant medication from Wellbutrin to Zoloft in the past 3 weeks, admitted due to worsening anxiety and depression with concerns for thoughts of HI and acute alcohol withdrawal. Patient denies current HI/SI. Alcohol abuse with withdrawal -Patient brought in for alcohol withdrawal given gabapentin taper [facility] Psychiatry evaluation on the recommends continuing sertraline in the 100 continue BuSpar 5 3 times daily increasing gabapentin to 300 3 times daily considering propranolol and naltrexone as adjunctive therapy. If anxiety and depression symptoms persist increasing sertraline to 150, do not feel has any Homicidial ideation due to tremor one dose of librium given po on 03/07 transaminitisimproved/resolved Bili remains slightly elevated Anxiety and depression - Continue home medications: Buspar 5mg TID (Consider increasing), and Zoloft 100mg PO QAM Increase gabapentin 300mg tID -Psychiatry does not feel homicidal ideation is present insomnia, melatonin 6mg qHS b12 deficiency; IM b12 1000 daily DVT proph: Lovenox 40mg SQ QAM Admission and Anticipated Discharge Date Admission Date: March 05, 2025 Subjective pt is still slightly tremulous, feels better, not tachycardic or hypertensive Physical Exam Physical Exam: is with resting tremor some pressured speech cardiac is regular lungs clear Results & Data Results & Data Vital Signs (Past 12 Hours) Vital Signs Temp Pulse Pulse Resp BP Pulse Ox O2 Del Method 03/07/25 07:01 97.5 F L 66 18 126/77 97 Room Air 03/07/25 05:14 97.7 F 69 18 128/85 97 Room Air 03/06/25 22:26 98.2 F 90 18 127/76 96 Room Air 03/06/25 22:00 64 PG Care Time/CCT Total # of Minutes Spent Total Time Spent with Patient: Total time spent is greater than 50% in coordination of care (as documented) at patient's floor/unit and/or counseling patient: Coding Level of Care Code 46680 SUB INP/OBS CARE MIN Diagnoses Alcohol abuse with withdrawal F10.139 Acute anxiety F41.9 Major depression F32.9
[2025-03-07] MEDS: MAGNESIUM SULFATE / D5W 1 GM/100 ML BAG IV SCH (09:39)
[2025-03-07] MEDS: POTASSIUM CHLORIDE CRTAB 20 MEQ TABCR PO SCH (09:40)
[2025-03-07] MEDS: PROPRANOLOL HCL 10 MG TAB PO SCH (09:40)
[2025-03-07] MEDS: GABAPENTIN 300 MG CAP PO SCH (13:15)
[2025-03-08] MEDS: BISMUTH SUBSALICYLATE SUSP PO PRN (02:30)
[2025-03-08 07:37] LABS: Alanine Aminotransferase 53.0 U/L (7-52); Albumin Globulin Ratio 1.6 (0.9-2); Alkaline Phosphatase 66.0 U/L (34-104); Anion Gap 5.0 (3-11); Bilirubin,Total 1.4 mg/dl (0.2-1.0); Blood Urea Nitrogen 9.0 mg/dl (6-23); Calcium 8.0 mg/dl (8.6-10.3); Carbon Dioxide 27.0 mmol/L (21-32); Chloride 104.0 mmol/L (98-107); Creatinine Clr Calc Pharmacy 150.6 ml/min; Globulin 2.4 gm/dl (2.5-4.0); Glucose 97.0 mg/dl (70-99(Fasting)); Magnesium 1.9 mg/dl (1.7-2.4); Potassium 3.6 mmol/L (3.5-5.1); Sodium 136.0 mmol/L (136-145); Total Protein 6.3 gm/dl (6.0-8.3)
[2025-03-08 08:01] VITALS: BP 114/76; RESP 19; TEMP 97.7; O2SAT 98
[2025-03-08 10:49] VITALS: PULSE 82
--- NOTE | 2025-03-08 16:16 | Discharge Summary ---
Discharge Summary Date of Service March 08, 2025 Principal Dx & Hospital Course #1 = Principal Diagnosis (1) Alcohol abuse with withdrawal: (2) Acute anxiety: (3) Major depression: Plan Leonard Breen is a 39 y/o M with a PMH of severe depressive disorder and anxiety, insomnia. he was on buspirone, hydroxyzine, lexapro in the past, and did not address his anxiety. who recently attempted to taper off his chronic alcohol consumption in the past 2 weeks, and recently switched anti-depressant medication from Wellbutrin to Zoloft in the past 3 weeks, admitted due to worsening anxiety and depression Alcohol abuse with withdrawal -Patient brought in for alcohol withdrawal [facility] the recommends continuing sertraline in the 100 continue BuSpar 5 3 times daily increasing gabapentin to 300 3 times daily considering propranolol and naltrexone as adjunctive therapy. since anxiety and depression symptoms persist increasing sertraline to 150, do not feel has any Homicidial ideation due to tremor one dose of librium given po on 03/07 will have home on gabapentin taper spent time at the bedside to discuss strategies for after care and AA and even inpatient rehab transaminitisimproved/resolved Bili remains slightly elevated Anxiety and depression - Continue home medications: Buspar 5mg TID (Consider increasing), and Zoloft 150mg PO QAM -Psychiatry does not feel homicidal ideation is present insomnia, melatonin 6mg qHS b12 deficiency; IM b12 1000 daily Notes For Next Care Provider pt may benefit from increase in anxiety treatment Admission HPI Per Admitting Provider Leonard Breen is a 39 y/o M with a past medical hx of major depressive disorder and severe anxiety arriving to [facility] ED with his brother for a mental health evaluation and due to acute alcohol intoxication and concerns for withdrawal. Patient reports that he does not have other significant past medical hx. Patient notes that for the past few years his mental health medications have been changing. Patient was initially on Lexapro, switched to Wellbutrin 150mg for approximately a year and then more recently switched to Zoloft 100mg in the past 3 weeks. Patient has also been on Buspar 5mg TID and hydroxyzine 10mg QID PRN, but reports that this medication does not help with his anxiety, but it does make him very tired. Patient also endorses that he has been heavily drinking, approximately "2 handles of vodka" per week for the past 3-4 months as he felt that his mental health medications were not working properly. Patient reports that 2 weeks ago patient attempted to taper off his regular alcohol consumption and feels that for approximately 3 weeks to a month he has had progressively worsening anxiety and depression. Patient denies HI/SI and has no plans related to HI/SI but does report that he resonates with other people with severe depression and anxiety who do end up hurting themselves. Patient does endorse that he has a medical marijuana card but does not like the way he feels after using this medication, and he feels that when he uses hydroxyzine or medical marijuana he cannot focus on his work. Patient does not report any new stressors, but he does mention that he started a job 5 months ago and mentions that the thought of failing at his job often spirals in his mind making it very difficult for him to complete any tasks or be productive. Currently patient remains afebrile and hemodynamically stable. Discharge Exam awake and alert no longer tremulous Discharge Plan Discharge Items Patient Disposition: Home - Self-Care Reason For Visit: ACUTE ETOH WITHDRAWAL, SEVERE DEPRESSION/ANXIETY Discharge Diagnosis: alcohol withdrawal anxiety and depresion Condition on Discharge: Fair Activity: Resume your previous activity Non-emergency contact: Primary Care Provider Call non-emergency contact if: your symptoms worsen Follow-up/Referrals: Manfred Mistry MD [Primary Care Provider] - 03/12/25 3:25 pm (Hospital follow up on Wednesday, March 12 at 3:25 pm.) Diet: Regular Addtl Attending Provider Instructions: What is alcohol withdrawal? If you drink alcohol regularly and then cut down on how much you drink or suddenly stop drinking, you may go through some physical and emotional problems. This is called withdrawal. It happens because the alcohol is clearing out of your system. Clearing the alcohol from your body is called detoxification, or detox. Most people may be able to cut down or stop drinking with only mild withdrawal. But people who drink large amounts of alcohol should not try to detox at home unless they work closely with a doctor to manage it. A person can of severe alcohol withdrawal. Before you stop drinking, talk to your doctor. It's important to tell your doctor exactly how much you have been drinking. Your doctor can help you decide if you need to detox in a medical centre where you can be supervised. What are the symptoms? Symptoms of alcohol withdrawal may start a few hours after you stop drinking. Or they may not start until a few days after the last drink. Mild symptoms include: Nausea.Sweating.Shakiness.Diarrhea.Intense worry.Disturbed sleep.Headache. More severe symptoms include: Vomiting or belly pain.Being confused, upset, and cranky.Changed sensations. You might feel things on your body that aren't really there. Or you may see or hear things that aren't there.Trembling.Being short of breath or having pain in your chest.Having seizures. Symptoms may peak within a few days. Mild symptoms can last for a few weeks. If your symptoms are severe, you'll need to see a doctor. How is alcohol withdrawal treated? You may get medicine to treat withdrawal symptoms, whether you detox at home or in a medical centre. Medicine that treats seizures can also help. You may start with a high dose and then take smaller amounts over several days. There's also medicine that can help you avoid alcohol while you recover. After detox, the focus shifts to staying alcohol-free. You can learn skills that help you stay sober as you recover. You also may get medicine to help you stay sober. Most people get some type of therapy, such as group counselling. Treatment doesn't focus on alcohol use alone. It may address other parts of your life, like your relationships, work, medical problems, and home life. Finding new ways to deal with life's challenges without drinking takes time and effort. Treatment, support, patience, and commitment will help you make the changes you need to live a full life without alcohol. How can you care for yourself at home? Make sure there's no alcohol in your home. This includes drinks as well as liquid medicines, rubbing alcohol, and some flavorings like vanilla extract.Try not to hang out with people you used to drink with.Don't go it alone. Spend time with people who support the changes you are making in your life. This includes asking for advice and help from people who have stopped drinking. You might also try mutual support groups such as Alcoholics Anonymous. And you can look for a counsellor who has experience helping people with alcohol use disorder.Rest, drink lots of fluids, and eat healthy foods.If you crave alcohol, eat snacks such as fruit, cheese and crackers, and pretzels. High-carbohydrate foods may help reduce the craving for alcohol. Pending Studies at Discharge: No Stand-Alone Forms: My [facility] [employer], Smoking Cessation Medications and DC Order Prescriptions: New gabapentin 300 mg Capsule 300 mg PO UD Qty: 11 0RF Rx Instructions: one 3xs a day for 2 days -> one 2xs a day for 2 days -> then one at night for 2 days sertraline [Zoloft] 100 mg tablet 150 mg PO DAILY Qty: 60 4RF Continued buspirone 5 mg Tablet 5 mg PO TID hydroxyzine HCl 10 mg tablet 10 mg PO 4XD PRN (Reason: Anxiety) levocetirizine 5 mg tablet 5 mg PO DAILY PRN (Reason: Allergy Symptoms) Discontinued sertraline [Zoloft] 25 mg tablet 100 mg PO HS Discharge Orders: Discharge Order (Routine); Ordered 03/08/25 Ordered By: Alfie Douglas Admission Data Admit Date/Time: 03/05/25 20:30 Attending Provider: Alfie Douglas Admit Provider: Papito Riggins Primary Care Provider: Manfred Mistry Other Providers: Staci Worthington; Karli Abad; All Gardiner; Jenelle Pittman; Belem Trujillo; Lupillo Mcpherson; Santy Kurtz; Buffy Adams; Pia Ballard. Other Interventions: Discharge Summary Assessment (RN) Last Done: 03/08/25 10:48 Hospital Stay Data Consultations 03/05/25 18:56 ED Decision to Admit Stat 03/05/25 21:41 Consult Psychiatry Routine Pending Results Patient Have Any Pending Studies at Discharge: No Discharge Instructions Given to Patient (Per Discharging Provider) What is alcohol withdrawal? If you drink alcohol regularly and then cut down on how much you drink or suddenly stop drinking, you may go through some physical and emotional problems. This is called withdrawal. It happens because the alcohol is clearing out of your system. Clearing the alcohol from your body is called detoxification, or detox. Most people may be able to cut down or stop drinking with only mild withdrawal. But people who drink large amounts of alcohol should not try to detox at home unless they work closely with a doctor to manage it. A person can of severe alcohol withdrawal. Before you stop drinking, talk to your doctor. It's important to tell your doctor exactly how much you have been drinking. Your doctor can help you decide if you need to detox in a medical centre where you can be supervised. What are the symptoms? Symptoms of alcohol withdrawal may start a few hours after you stop drinking. Or they may not start until a few days after the last drink. Mild symptoms include: Nausea.Sweating.Shakiness.Diarrhea.Intense worry.Disturbed sleep.Headache. More severe symptoms include: Vomiting or belly pain.Being confused, upset, and cranky.Changed sensations. You might feel things on your body that aren't really there. Or you may see or hear things that aren't there.Trembling.Being short of breath or having pain in your chest.Having seizures. Symptoms may peak within a few days. Mild symptoms can last for a few weeks. If your symptoms are severe, you'll need to see a doctor. How is alcohol withdrawal treated? You may get medicine to treat withdrawal symptoms, whether you detox at home or in a medical centre. Medicine that treats seizures can also help. You may start with a high dose and then take smaller amounts over several days. There's also medicine that can help you avoid alcohol while you recover. After detox, the focus shifts to staying alcohol-free. You can learn skills that help you stay sober as you recover. You also may get medicine to help you stay sober. Most people get some type of therapy, such as group counselling. Treatment doesn't focus on alcohol use alone. It may address other parts of your life, like your relationships, work, medical problems, and home life. Finding new ways to deal with life's challenges without drinking takes time and effort. Treatment, support, patience, and commitment will help you make the changes you need to live a full life without alcohol. How can you care for yourself at home? Make sure there's no alcohol in your home. This includes drinks as well as li quid medicines, rubbing alcohol, and some flavorings like vanilla extract.Try not to hang out with people you used to drink with.Don't go it alone. Spend time with people who support the changes you are making in your life. This includes asking for advice and help from people who have stopped drinking. You might also try mutual support groups such as Alcoholics Anonymous. And you can look for a counsellor who has experience helping people with alcohol use disorder.Rest, drink lots of fluids, and eat healthy foods.If you crave alcohol, eat snacks such as fruit, cheese and crackers, and pretzels. High-carbohydrate foods may help reduce the craving for alcohol. Total Time Total Time Spent Total Time Spent (In Minutes): I personally have spent greater than 30 minutes of time on the patient discharge today including review of tests, documentation, exam, and discussing treatment plan moving forward with the patient. Coding Level of Care Code 39794 INP/OBS DISCH >30 MIN Diagnoses Alcohol abuse with withdrawal F10.139 Acute anxiety F41.9 Major depression F32.9
== END 2025-03-08 11:34 | disposition home or self-care (01) | DRG 897 ==
LOC: ED 15:41 → SUATTDRO 20:30 → EDINP 20:30 → 2E 03-06 13:52